=== PATIENT | male | born 1945 ===

== ENCOUNTER 2019-07-12 15:06 | Outpatient (CLI) | payer MEDICARE, OTHER ==
--- NOTE | 2019-07-13 11:06 | XRAY Report ---
Reason: ARTHRITIS R SHOULDER Procedure Date: 07/12/2019 Accession Number: [id number] / [id number] Procedure: XR - Shoulder 3 View RT CPT Code: Final Report FULL RESULT: EXAM: RIGHT SHOULDER RADIOGRAPHY 3 VIEWS EXAM DATE: 07/12/2019. CLINICAL HISTORY: Arthritis. Right shoulder pain for 6 months. COMPARISON: None. TECHNIQUE: AP, Grashey and scapular Y views. FINDINGS: Bones: No fracture or other acute abnormality. Joints: No dislocation. Narrowing and spurring of the acromioclavicular joint. Glenohumeral joint is intact. Soft tissues: 13 x 4 mm calcification adjacent to the greater tuberosity. A 6 mm calcification adjacent to the proximal diaphysis of the humerus. The right lung is clear. Other: Disk narrowing and osteophytes at multiple levels of the thoracic spine. IMPRESSION: Degenerative changes of the acromioclavicular joint. Calcific tendinosis. Multilevel degenerative disk disease and spondylosis of the thoracic spine. No acute abnormality. RADIA
== END 2019-07-12 15:07 | disposition home or self-care (01) ==
LOC: DI 15:06
PROVIDERS: ATTEND Family Medicine
DX: M19.011 Primary osteoarthritis, right shoulder (principal); M75.31 Calcific tendinitis of right shoulder; M51.34 Other intervertebral disc degeneration, thoracic region; M47.814 Spondylosis without myelopathy or radiculopathy, thoracic region

== ENCOUNTER 2020-10-01 00:55 | Outpatient (CLI) | payer OTHER | END 2020-10-01 00:56 | disposition critical access hospital (66) | LOC: EMS 00:55 | DX: R07.9 Chest pain, unspecified (principal) | CPT/HCPCS: A0425; A0427 ==

== ENCOUNTER 2020-10-01 01:23 | Inpatient (IN) | payer MEDICARE, OTHER ==
--- NOTE | 2020-10-01 01:23 | ED Physician Documentation ---
PD HPI CHEST PAIN - Stated complaint Stated Complaint: CHEST DISCOMFORT - History obtained from History obtained from: Patient, EMS - History of Present Illness Timing - onset: How many minutes ago (90) Timing - onset during: Rest Timing - details: Abrupt onset Pain level max: 8 Pain level now: 3 Quality: Pressure Location: Substernal Radiation: Neck Improved by: Nitro, ASA, Other medication (morphine) Worsened by: Other (no exacerbating factors) Associated symptoms: Nausea, Feeling faint / dizzy. No: Shortness of air, Diaphoresis, Vomiting Similar symptoms before: Has not had sx before Recently seen: Not recently seen - Additional information Additional information: BIBA. 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 Denies h/o similar symptoms. EMS administered 325mg ASA PO, SLNTG x 3, and then morphine 4mg IV; these interventions decreased the pain from 8 (of 10) down to 3 by the time he arrives in ED. FSBS 163 by EMS. He saw his line o scribe operator 2 weeks ago; he says he sees line o scribe operator due to h/o CVA. Review of Systems Constitutional: reports: Reviewed and negative Eyes: reports: Reviewed and negative Ears: reports: Reviewed and negative Nose: reports: Reviewed and negative Throat: reports: Reviewed and negative Cardiac: reports: Chest pain / pressure. denies: Palpitations, Pedal edema, Calf pain Respiratory: reports: Reviewed and negative GI: reports: Nausea. denies: Abdominal Pain, Vomiting, Constipation, Diarrhea : denies: Dysuria, Frequency Skin: reports: Reviewed and negative Musculoskeletal: reports: Reviewed and negative Neurologic: reports: Reviewed and negative PD PAST MEDICAL HISTORY - Past Medical History Past Medical History: Yes Cardiovascular: Hypertension, High cholesterol Respiratory: COPD Neuro: CVA Endocrine/Autoimmune: Type 2 diabetes - Present Medications Home Medications: Ambulatory Orders Medication Instructions Recorded Confirmed Albuterol Sulfate [Proair 90 mcg INH DAILY 10/01/20 10/01/20 Digihaler] Aspirin [Garden Aspirin] 81 mg PO DAILY 10/01/20 10/01/20 Atorvastatin [Lipitor] 80 mg PO DAILY PM 10/01/20 10/01/20 Budesonide/Formoterol Fumarate 2 puffs INH DAILY 10/01/20 10/01/20 [Symbicort 80-4.5 Mcg Inhaler] Lisinopril [Zestril] 2.5 mg PO DAILY 10/01/20 10/01/20 Tiotropium [place] [Spiriva 1.25 INH DAILY 10/01/20 Respimat] Tiotropium [place] [Spiriva 2.5 INH DAILY 10/01/20 Respimat] metFORMIN [Glucophage] 1,000 mg PO BID 10/01/20 10/01/20 - Allergies Allergies/Adverse Reactions: Allergies Allergy/AdvReac Type Severity Reaction Status Date / Time No Known Drug Allergies Allergy Verified 10/01/20 01:31 - Living Situation Living Arrangement: reports: At home - Social History Does the pt smoke?: No PD ED PE NORMAL - Vitals Vital signs reviewed: Yes - General General: Alert and oriented X 3, No acute distress, Well developed/nourished - HEENT HEENT: Moist mucous membranes - Neck Neck: Supple, no meningeal sign - Cardiac Cardiac: RRR, No murmur, No gallop, No rub - Respiratory Respiratory: No respiratory distress, Clear bilaterally - Abdomen Abdomen: Soft, Non tender - Derm Derm: Normal color, Warm and dry - Extremities Extremities: No edema - Neuro Neuro: Alert and oriented X 3 Results - Vitals Vitals: Vital Signs - 24 hr 10/01/20 10/01/20 01:23 01:31 Temperature 36.6 C Heart Rate 70 87 Respiratory 16 Rate Blood Pressure 133/73 H 108/79 O2 Saturation 96 97 Oxygen O2 Source Room air - EKG (time done) No standard instances Rate: Rate (enter#) (67) Rhythm: NSR, LAE [place]: Normal, Anterior hemiblock Intervals: Normal MS, RBBB QRS: Normal Ischemia: Normal ST segments - Labs Labs: Laboratory Tests 10/01/20 10/01/20 10/01/20 01:26 01:26 01:26 WBC 9.7 RBC 4.80 Hgb 13.6 L Hct 41.2 L MCV 85.8 MCH 28.3 MCHC 33.0 RDW 12.3 Plt Count 157 MPV 13.8 H Neut # (Auto) 5.5 Lymph # (Auto) 3.4 [place] # (Auto) 0.7 Eos # (Auto) 0.1 Baso # (Auto) 0.0 Absolute Nucleated RBC 0.00 Nucleated RBC % 0.0 D-Dimer Sodium 139 Potassium 4.0 Chloride 105 Carbon Dioxide 24 Anion Gap 10.0 BUN 21 H Creatinine 1.3 H Estimated GFR (MDRD) 54 L Glucose 186 H Calcium 9.2 Total Bilirubin 0.7 AST 15 ALT 17 Alkaline Phosphatase 55 Troponin I High Sens 7.6 Total Protein 7.0 Albumin 4.0 Globulin 3.0 Albumin/Globulin Ratio 1.3 Lipase 18 L 10/01/20 02:05 WBC RBC Hgb Hct MCV MCH MCHC RDW Plt Count MPV Neut # (Auto) Lymph # (Auto) [place] # (Auto) Eos # (Auto) Baso # (Auto) Absolute Nucleated RBC Nucleated RBC % D-Dimer 267.4 H Sodium Potassium Chloride Carbon Dioxide Anion Gap BUN Creatinine Estimated GFR (MDRD) Glucose Calcium Total Bilirubin AST ALT Alkaline Phosphatase Troponin I High Sens Total Protein Albumin Globulin Albumin/Globulin Ratio Lipase - Rads (name of study) chest xray Radiology: Prelim report reviewed, See rad report PD MEDICAL DECISION MAKING - ED course Complexity details: reviewed results, re-evaluated patient, considered differential, d/w patient ED course: EKG shows RBBB, LAFB but no changes/findings to suggest ACS. His description of his symptoms is concerning and his HEART score is 6 (zero for troponin, one each for HPI, EKG, and two points each for age and risk factors), and thus he is admitted to [facility] for further testing and observation. On reevaluation after tests resulted but prior to disposition, he reports to me that his pain is down to 1 out of 10 and is only manifest as pressure/discomfort in his throat/anterior neck (no longer has chest pressure). Departure - Departure Disposition: ED Place in Observation Clinical Impression: Chest pain Qualifiers: Chest pain type: unspecified Qualified Code(s): R07.9 - Chest pain, unspecified Condition: Good Discharge Date/Time: 10/01/20 03:16
[2020-10-01 01:53] LABS: BASOPHILS % (AUTO) 0.4 %; EOSINOPHILS # (AUTO) 0.1 10^3/uL (0.0-0.7); EOSINOPHILS % (AUTO) 1.1 %; HCT - HEMATOCRIT 41.2 % (42.0-52.0); HGB - HEMOGLOBIN 13.6 g/dL (14.0-18.0); LYMPHOCYTES # (AUTO) 3.4 10^3/uL (1.5-3.5); LYMPHOCYTES % (AUTO) 34.8 %; MEAN CORPUSCULAR HEMOGLOBIN 28.3 pg (27.0-31.0); MEAN CORPUSCULAR VOLUME 85.8 fL (80.0-94.0); MEAN PLATELET VOLUME 13.8 fL (7.4-11.4); MONOCYTES # (AUTO) 0.7 10^3/uL (0.0-1.0); NEUTROPHILS # (AUTO) 5.5 10^3/uL (1.5-6.6); NEUTROPHILS % (AUTO) 56.4 %; PLT - PLATELET COUNT 157 10^3/uL (130-450); RED CELL DISTRIBUTION WIDTH 12.3 % (12.0-15.0); WHITE BLOOD COUNT 9.7 x10^3/uL (4.8-10.8)
[2020-10-01 02:04] LABS: ALBUMIN/GLOBULIN RATIO 1.3 (1.0-2.2); BILIRUBIN,TOTAL 0.7 mg/dL (0.2-1.0); CALCIUM 9.2 mg/dL (8.5-10.3); CREATININE 1.3 mg/dL (0.6-1.2)
[2020-10-01] MEDS ORDERED: ONDANSETRON 4 MG/2 ML VIAL IVP PRN (02:49)
[2020-10-01] MEDS ORDERED: oxyCODONE 5 MG TABLET PO PRN (02:49)
[2020-10-01] MEDS ORDERED: ACETAMINOPHEN 325 MG TABLET PO PRN (02:49)
[2020-10-01] MEDS ORDERED: ONDANSETRON ODT 4 MG TABLET TL PRN (02:49)
[2020-10-01] MEDS ORDERED: SODIUM CHLORIDE FLUSH 0.9% 10 ML SYRINGE IVP PRN (02:49)
[2020-10-01] MEDS ORDERED: MORPHINE 2 MG/ML CARPUJECT IVP PRN (03:00)
[2020-10-01] MEDS ORDERED: NITROGLYCERIN SL 0.4 MG TABLET SL PRN (03:00)
[2020-10-01] MEDS ORDERED: ASPIRIN 325 MG TABLET PO STA (03:03)
--- NOTE | 2020-10-01 03:03 | HISTORY & PHYSICAL EXAMINATION ---
Chief Complaint - Chief Complaint Chief Complaint: Chest pressure radiating to neck History of Present Illness - Admitted From Admitted From:: Home via EMS - History Obtained From Records Reviewed: [facility] History obtained from: Patient and Dr. Kang Exam Limitations: None - History of Present Illness HPI Comment/Other: This is a pleasant 75-year-old white male whose cardiac risk factors include male sex, hyperlipidemia, hypertension, diabetes mellitus as well as a history of stroke. He is currently on Lipitor, aspirin. He does see a lieutenant fire fighter due to his history of stroke. Was last seen 2 weeks ago and given "a clean bill of health". He then restates himself instead "at least my EKG was okay." He has been exhausted for about a year and a half now. Things are getting harder and harder to do. No clear reason why. So his lieutenant fire fighter is scheduling him for a stress test. He has not been able to do that yet since they have not given him a call. He is unclear about why he sees a lieutenant fire fighter with a history of stroke. He denies any previous history of AZ, angina, atrial fibrillation, or congestive heart failure. 3 years ago, when he had his TIA, he describes having a coronary angiogram. States that they shot some dye into his heart and "looked all over" and told him that his heart was okay. He was awoken from sleep tonight because of chest pressure that was a severe aching and radiated up from his chest into his throat. He had sweats and nausea with this. The nausea is still here. This entire episode "wiped him out". He is exhausted. He denies palpitations. He has never had this before. There is no left shoulder pain or arm pain with this in spite of the fact that he has chronic bilateral shoulder pain. He received 2 sublingual nitroglycerin and 4 of morphine due to the severity of the pain. He states that most of that ache is completely gone. He just still has a little bit of residual throat ache that still present. He was evaluated by Dr. Kang for temperature was 36.6. Heart rate 70. 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 Blood pressure 133/73. Respirations 16. 96% saturation on room air. He had no JVD, clear lungs, a regular rate and rhythm on exam. Was comfortable in the gurney. BUN 21, creatinine 1.3. Troponin 7.6. Random glucose 186. Hemoglobin 13.6. We do not have any other lab reports on this gentleman to compare to.He has not received any medications in the emergency room. I will order an aspirin 325 mg once. And resume his usual aspirin that he takes at home. The patient is now placed in observation for rule out AZ. History - Past Medical History Cardiovascular: reports: Hypertension, High cholesterol Respiratory: reports: COPD Neuro: reports: CVA, Peripheral neuropathy (starting to have gait instablility and ataxia) Endocrine/Autoimmune: reports: Type 2 diabetes GI: reports: None : reports: Nocturia, Frequency HEENT: reports: Chronic vision loss, Chronic hearing loss Psych: reports: None Musculoskeletal: reports: Osteoarthritis Derm: reports: None - Past Surgical History Ortho: reports: Shoulder arthroplasty (left side) - Family & Social History Family History Comment/Other: Dad at age 73 of complications of congestive heart failure. He was an alcoholic. Mom in her mid 60s. She was living i n a senior living but he cannot say why. She did not have diabetes, hypertension. She of septicemia from decubitus ulcers that had set in. 5 siblings. 1 brother of complications of diabetes. 1 brother in a motor vehicle accident at the age of 37. 1 sister had bilateral BKA's due to diabetes and of peripheral vascular disease and complications of diabetes. His youngest brother is bipolar. They last spoke several decades ago. He has no idea of that brother is alive, , or has any major medical issues. 2 children. One is a commanding officer at the [employer] air [employer] and is a captain in the [employer]. Completely healthy. 1 daughter is a radiology clerk in a hospital in [facility] and is also completely healthy. Living arrangement: At home Living Situation: With spouse/s.o. Social History Notes: He smokes starting around the age of 14 and quit in 1992. Was up to 2 packs/day at times. Was an alcoholic of anywhere from a half a case of beer to a case of beer a day with 1/5 of whiskey on top of that. By then he was out of 4 years of the [employer], and had been working at a slaughterhouse. Met his . She had given him 2 beautiful kids and he decided that "this was stupid" and he just stopped drinking. Did that 40 years ago. No history of recreational substance abuse. his when he was living in [place]. She is an RN and has severe medical problems of her own including brittle diabetes. [place]. [place] He had gone into the [employer] for 4 years and left around 1966. 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 - Substance History Use: Uses substance without health or social issues: NONE Abuse: Recurrent use of substance despite neg consequences: NONE Dependence: Experiences withdrawal or developed tolerances: NONE - POLST Patient has POLST: No POLST Status: Full Code Meds/Allgy - Home Medications Home Medications: Ambulatory Orders Medication Instructions Recorded Confirmed Albuterol Sulfate [Proair 90 mcg INH DAILY 10/01/20 10/01/20 Digihaler] Aspirin [Iyanbito Aspirin] 81 mg PO DAILY 10/01/20 10/01/20 Atorvastatin [Lipitor] 80 mg PO DAILY PM 10/01/20 10/01/20 Budesonide/Formoterol Fumarate 2 puffs INH DAILY 10/01/20 10/01/20 [Symbicort 80-4.5 Mcg Inhaler] Lisinopril [Zestril] 2.5 mg PO DAILY 10/01/20 10/01/20 Tiotropium [place] [Spiriva 1.25 INH DAILY 10/01/20 Respimat] Tiotropium [place] [Spiriva 2.5 INH DAILY 10/01/20 Respimat] metFORMIN [Glucophage] 1,000 mg PO BID 10/01/20 10/01/20 - Allergies Allergies/Adverse Reactions: Allergies Allergy/AdvReac Type Severity Reaction Status Date / Time No Known Drug Allergies Allergy Verified 10/01/20 01:31 Review of Systems - Constitutional Constitutional: reports: Other (He describes about 1-1/2 years of just severe fatigue. No clear indication why. Just exhausted and slowing down. Denies fevers, night sweats, weight changes. Appetite is great.) - Eyes Eyes: reports: Other (Wears corrective lenses, denies glaucoma. Does have early cataracts. No history of amaurosis.) - Ears, Nose & Throat Ears, Nose & Throat: reports: Other (Mild deafness, denies any other problems such as dysphagia, nasal congestion, allergies, hoarseness.) - Cardiovascular Cariovascular: reports: Other (Never had angina before. Denies orthopnea, edema. Again describes a gradual slowing down. Can walk about 350 feet down to the barn and then back up hill again but has to do it slowly. Gets short of breath.) - Respiratory Respiratory: reports: Other (Shortness of breath is creeping up on him. Mainly with exertion. Not at rest. Been prevalent more more the last 2 years. Denies cough, sputum production, hemoptysis. Denies any apnea or use of CPAP.) - Gastrointestinal Gastrointestinal: reports: Other (Excellent appetite. But lately he has been embarrassed because he has explosive diarrhea that comes from out of nowhere. The urge will come from out of nowhere and he has no control over it. By the time he gets to the toilet he is soiled his pants. This is happened several times.). denies: Black stools, Bloody stools, Vomiting, Raji blood emesis, Coffee grounds emesis, Reflux/heartburn - Genitourinary Genitourinary: reports: Frequency, Urgency, Nocturia. denies: Dysuria, Incontinence - Musculoskeletal Musculoskeletal: reports: Back pain (Getting worse over the last few years.), Joint pain (Both shoulders.) - Integumentary Integumentary: denies: Rash, Pruritis, Lesions - Neurological Neurological: reports: General weakness, Numbness (Specifically in his feet. Getting much more dense over the last few years.), Incoordination (His feet are now catching on the floor. He seems to be stumbling more. And he cannot control the fact that his wants to shuffle). denies: Focal weakness, Memory problems - Psychiatric Psychiatric: denies: Depression, Anxiety, Suicidal, Delusions, Hallucinations - Endocrine Endocrine: reports: Polyuria. denies: Polydypsia, Polyphagia, Intolerance to cold - Hematologic/Lymphatic Hematologic/Lymphatic: denies: Anemia, Bruising, Petechiae Prior Level of Functionality: Although he is slowing down, any starting to shuffle way too much, he is still independent with activities of daily living. He dresses himself, feed himself. Still walks down to the barn to do some work there every day and then come back up to 350 feet. Is taking him longer longer to do so. Does not use any [place] medical equipment. In addition to just generalized fatigue, daily shortness of breath, bilateral shoulder pain and back pain slow him down. Exam - Vital Signs Reviewed Vital Signs: Yes Vital Signs: Vital Signs x48h Temp Pulse Resp BP Pulse Ox 10/01/20 02:49 72 125/73 96 10/01/20 01:31 87 108/79 97 10/01/20 01:23 36.6 C 70 16 133/73 H 96 - Physical Exam General Appearance: positive: No acute distress, Alert, Other (Stocky elderly white male, balding, wearing glasses, looks stated age.) Eyes Bilateral: positive: PERRL, EOMI ENT: positive: Pharynx nml Neck: positive: No JVD. negative: Stiff neck Respiratory: positive: No respiratory distress. negative: Wheezes, Rales, Rhonchi Cardiovascular: positive: Regular rate & rhythm, Systolic murmur. negative: Gallop/S4, Friction rub Peripheral Pulses: positive: 1+ Abdomen: positive: Non-tender, No organomegaly, Nml bowel sounds, No distention Skin: positive: Warm, Dry. negative: Diaphoresis Extremities: positive: Full ROM, No pedal edema Neurologic/Psychiatric: positive: Oriented x3, CN's nml (2-12) (Mild deafness). negative: Motor nml (Does have shuffling gait, masked facies, no tremors, pos sible slight cogwheel rigidity right arm.), Sensation nml (Light touch is really gone from his feet up to his ankles), Facial droop, Slurred/abnml speech, Depressed mood/affect Reflexes: Bicep (R): 1+, Bicep (L): 1+, Knee (R): 1+, Knee (L): 1+, Ankle (R): 0, Ankle (L): 0 Conclusion/Plan - Problem List (1) Chest pain Conclusion/Plan: Gentleman who has all the cardiac risk factors. History is certainly suggestive of angina. D-dimer is not high enough to trigger a CT pulmonary angiogram. Cu rrently pain is 1 out of the 10 because there is still a slight throat ache. Chest pain is gone. Plan: Observation status Serial cardiac enzymes Aspirin Received in the EMS rig Williex for DVT prophylaxis I am unclear if he will be able to get a nuclear medicine study today. There is no provider currently available but will order it in the possibility that one will be found. However, this history is very, very suggestive of an episode of ischemia. I wonder if he is a candidate to go straight to the coronary angiogram lab. He sees a lieutenant fire fighter at [facility], Dr. Su. I will suggest that the daytime hospitalist call them first. They may want to transfer him to send him to the lab as opposed to trying to do a stress test. Qualifiers: Chest pain type: unspecified Qualified Code(s): R07.9 - Chest pain, unspecified (2) Type 2 diabetes mellitus with complication, without long-term current use of insulin Conclusion/Plan: Not on insulin.However, gives a history of uncontrollable diarrhea at times. Comes from out of nowhere. This may be from his Metformin.Complications of diabetes do include peripheral neuropathy. Plan: Check A1c Low-dose sliding scale insulin Consider changing his medication in the outpatient setting. He will talk to his primary care provider about it when he gets out of here. (3) Hypertension Conclusion/Plan: Patient has a blood pressure that went down to 108 systolic in the emergency room. Currently 125 systolic. Will hold off on his Zestril 2.5 mg a day. If he has recurrence of his angina, we will most likely use beta-eduarda. He describes having severely elevated blood pressure around the time of his TIA. Thus one of the reasons he had a coronary angiogram. Today's blood pressure does not show severe elevation. On minimal doses at home of Zestril 2.5 mg daily. Qualifiers: Hypertension type: primary hypertension Qualified Code(s): I10 - Essential (primary) hypertension (4) Hyperlipidemia Conclusion/Plan: Currently on a statin. Plan: Check fasting lipid Qualifiers: Hyperlipidemia type: mixed hyperlipidemia Qualified Code(s): E78.2 - Mixed hyperlipidemia (5) Shuffling gait Conclusion/Plan: Without memory loss, tremors. Does have a severe peripheral neuropathy. He says that he has a neurologist. Just had a Mini-Mental status exam and scored scored 30 out of 30. Plan: Follow-up with neurology in the outpatient setting (6) Chronic kidney disease Conclusion/Plan: We do not have any other labs on this gentleman. This may be acute or chronic. He has long-term diabetes. Is on metformin. Will hydrate with 1 L and recheck in the morning. Qualifiers: Chronic kidney disease stage: stage 3 (moderate) - Lab Results Lab results reviewed: Yes Fish Bones: 10/01/20 01:26 10/01/20 01:26 - Diagnostic Imaging Results Diagnostic Imaging Results: positive: Prelim report reviewed Diagnostic Imaging Results Comments: No active disease in the chest on chest x-ray - EKG Results EKG Interpreted Independently: No EKG Comparison: No prior EKG EKG Findings: ER provider interprets this as normal sinus rhythm, no acute ST-T wave changes. Right bundle branch block and left anterior fascicular block Core Measures - Anticipated LOS I expect patient to be DC'd or transferred within 96 hours.: Yes - DVT/VTE - Prophylaxis VTE/DVT Device ordered at admit?: Yes - AMI - Statin at Admit Aspirin Prescribed on Admit: Yes
[2020-10-01] MEDS ORDERED: ATORVASTATIN 40 MG TABLET PO STA (03:10)
[2020-10-01 03:50] LABS: CALCIUM 9.1 mg/dL (8.5-10.3); CREATININE 1.5 mg/dL (0.6-1.2); POTASSIUM 4.5 mmol/L (3.5-5.0)
[2020-10-01 03:53] LABS: B. PARAPERTUSSIS- RESP PCR PAN NOT DETECTED; B. PERTUSSIS- RESP PCR PANEL NOT DETECTED; C. PNEUMONIAE- RESP PCR PANEL NOT DETECTED; CORONAVIRUS 229E-RESP PCR NOT DETECTED; CORONAVIRUS HKU1-RESP PCR NOT DETECTED; CORONAVIRUS NL63-RESP PCR NOT DETECTED; CORONAVIRUS OC43-RESP PCR NOT DETECTED; HUMAN METAPNEUMOVIRUS NOT DETECTED; INFLUENZA A- RESP PCR PANEL NOT DETECTED; INFLUENZA B - RESP PCR PANEL NOT DETECTED; M. PNEUMONIAE- RESP PCR PANEL NOT DETECTED; PARAINFLUENZA VIRUS 1 NOT DETECTED; PARAINFLUENZA VIRUS 2 NOT DETECTED; PARAINFLUENZA VIRUS 3 NOT DETECTED; PARAINFLUENZA VIRUS 4 NOT DETECTED; RHINOVIRUS/ENTEROVIRUS NOT DETECTED; RSV- RESP PCR PANEL NOT DETECTED; SARS-CoV-2 -RESP PCR PANEL NOT DETECTED
[2020-10-01] MEDS ORDERED: INSULIN ASPART 300 UNIT/3 ML PEN SUBQ SCH (08:00)
[2020-10-01] MEDS ORDERED: SODIUM CHLORIDE 0.9% 1,000 ML IV SCH (08:00)
[2020-10-01] MEDS ORDERED: ENOXAPARIN 100 MG/ML SYRINGE SUBQ SCH ×2 (08:00→09:00)
--- NOTE | 2020-10-01 08:10 | XRAY Report ---
PROCEDURE: Chest 2 View X-Ray INDICATIONS: chest pain TECHNIQUE: 2 view(s) of the chest. COMPARISON: None. FINDINGS: Surgical changes and devices: Left shoulder replacement. Lungs and pleura: No pleural effusions or pneumothorax. Lungs are clear. Mediastinum: Mediastinal contours are normal. Heart size is normal. Bones and chest wall: No suspicious bony abnormalities. Soft tissues appear unremarkable. IMPRESSION: No acute cardiopulmonary abnormality Reviewed by: Cory Campbell on 10/01/2020 8:08 AM PDT Approved by: Cory Campbell on 10/01/2020 8:08 AM PDT Station ID: [id number]
[2020-10-01] MEDS ORDERED: ASPIRIN EC 81 MG TABLET PO SCH (09:00)
[2020-10-01] MEDS ORDERED: ENOXAPARIN 40 MG/0.4 ML SYRINGE SUBQ SCH (09:00)
[2020-10-01] MEDS ORDERED: SODIUM CHLORIDE FLUSH 0.9% 10 ML SYRINGE IVP SCH (09:00)
--- NOTE | 2020-10-01 09:21 | PROVIDER PROGRESS NOTE ---
Hospitalist Cross-cover Note - Cross-Cover Note Cross-Cover Note: The patient's troponin came back this morning at 129.9. Given the significant climb, the concern was for NSTEMI. He was started on full dose Lovenox for anticoagulation by the orderly. I spoke with cardiology this morning at [facility] who agreed that given the history and the drop in troponin, this is likely NSTEMI and transfer for an angiogram is warranted and that we should not pursue a stress test. Unfortunately, there are no beds available at [facility], and the [place]. I have put the patient on the waiting list at these facilities. Cardiology did recommend keeping him n.p.o. for the time being but if there was no bed available by this afternoon the patient could be started on a diet and made n.p.o. again at midnight in hopes of being transferred over the next 24 hours for an angiogram. The patient has already received aspirin 325 mg. We will continue my 81 mg daily and a full dose Lovenox. His heart rate is in the 60s as blood pressures in the 140 systolic. We will start him on low-dose metoprolol 25 mg twice daily. We will continue to trend his troponin and ultimately, the plan will be to transfer him to a facility with cardiology once a bed is available. The patient was updated on the plan and is in agreement.
[2020-10-01 09:41] LABS: ESTIMATED AVERAGE GLUCOSE 186 mg/dL (70-100); HEMOGLOBIN A1c% 8.1 % (4.27-6.07)
[2020-10-01] MEDS ORDERED: METOPROLOL TARTRATE 25 MG TABLET PO SCH (10:00)
--- NOTE | 2020-10-01 10:48 | PHARMACY PROGRESS NOTE ---
- Best Possible Medication History Admit Date and Time: 10/01/20 0957 Processed by: Pharmacy Medication History completed: Yes Patient Interview: Completed Secondary Source(s): Written medication list, Physician records, Pharmacy records (PATIENT AND SPOUSE ABLE TO CONFIRM HOME MEDICATIONS ) As the person ultimately responsible for medication therapy, providers are able to order a medication from an existing home medication list in [facility] via the "Reconcile Routine" prior to Confirmation of that medication by it support specialist. Such practice is discouraged except when the physician, in their clinical judgment, deems that a medical need exists for a medication without regard to previous use.
[2020-10-01 11:38] LABS: INR 1.2 (0.8-1.2); PT - PROTHROMBIN TIME 13.1 secs (9.9-12.6)
[2020-10-01] MEDS ORDERED: INSULIN REGULAR HUMAN 300 UNIT/3 ML VIAL SUBQ SCH (12:00)
[2020-10-01] MEDS ORDERED: CLOPIDOGREL 300 MG TABLET PO ONE (12:11)
--- NOTE | 2020-10-01 12:29 | DISCHARGE SUMMARY ---
Discharge Summary Admit Date: 10/01/20 Discharge Date: 10/01/20 Discharging Provider: Ezra Mercado Primary Care Provider: Vinay Lozada Code Status: Attempt Resuscitation Condition at Discharge: Stable Discharge Disposition: 02 Transfer Acute Care Hosp - DIAGNOSES Admission Diagnoses: Chest pain Type 2 diabetes mellitus Hypertension Hyperlipidemia Shuffling gait Chronic kidney disease, stage III Discharge Diagnoses with Status of Each Condition: NSTEMI - ongoing. Hypertension- stable. Type 2 Diabetes Mellitus - stable. Hyperlipdemia - stable. CKD stage stage III - stable. Shuffling gait - stable. - HPI History of Present Illness: H&P per Dr. Pagan: This is a pleasant 75-year-old white male whose cardiac risk factors include male sex, hyperlipidemia, hypertension, diabetes mellitus as well as a history of stroke. He is currently on Lipitor, aspirin. He does see a pmp certified project manager due to his history of stroke. Was last seen 2 weeks ago and given "a clean bill of health". He then restates himself instead "at least my EKG was okay." He has been exhausted for about a year and a half now. Things are getting harder and harder to do. No clear reason why. So his pmp certified project manager is scheduling him for a stress test. He has not been able to do that yet since they have not given him a call. He is unclear about why he sees a pmp certified project manager with a history of stroke. He denies any previous history of MO, angina, atrial fibrillation, or congestive heart failure. 3 years ago, when he had his TIA, he describes having a coronary angiogram. States that they shot some dye into his heart and "looked all over" and told him that his heart was okay. He was awoken from sleep tonight because of chest pressure that was a severe aching and radiated up from his chest into his throat. He had sweats and nausea with this. The nausea is still here. This entire episode "wiped him out". He is exhausted. He denies palpitations. He has never had this before. There is no left shoulder pain or arm pain with this in spite of the fact that he has chronic bilateral shoulder pain. He received 2 sublingual nitroglycerin and 4 of morphine due to the severity of the pain. He states that most of that ache is completely gone. He just still has a little bit of residual throat ache that still present. He was evaluated by Dr. Kang for temperature was 36.6. Heart rate 70. 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 Blood pressure 133/73. Respirations 16. 96% saturation on room air. He had no JVD, clear lungs, a regular rate and rhythm on exam. Was comfortable in the gurney. BUN 21, creatinine 1.3. Troponin 7.6. Random glucose 186. Hemoglobin 13.6. We do not have any other lab reports on this gentleman to compare to.He has not received any medications in the emergency room. I will order an aspirin 325 mg once. And resume his usual aspirin that he takes at home. The patient is now placed in observation for rule out MO. - HOSPITAL COURSE Hospital Course: He was admitted under observation for chest pain and to undergo stress test. His initial troponin was within normal limits but unfortunately began to climb and has not peaked at 1300. Given the initial increase in his troponin from 7 to 130, he was started on Lovenox 100 mg twice daily. He had already received a full dose aspirin. He was started on metoprolol 25 mg twice daily and given Plavix 300 mg once. I spoke with the cardiology group at [facility] given that is where his pmp certified project manager, Dr. Andrade, is located. They agreed with transfer but unfortunately there were no beds available but he was placed on the waiting list. I then contacted the [facility] in [place] who also have no beds available. I then spoke with the [facility] and the patient was graciously accepted by Dr. Reagan in transfer. The patient is chest pain-free prior to transfer and has been hemodynamically stable. He feels much improved compared to his initial presentation. Troponin at 11 AM is 1312.4. We were unable to obtain an echocardiogram today as the tech was unavailable. The patient has been n.p.o. since hospitalization. - ALLERGIES Allergies/Adverse Reactions: Allergies Allergy/AdvReac Type Severity Reaction Status Date / Time No Known Drug Allergies Allergy Verified 10/01/20 01:31 - MEDICATIONS Home Medications: Ambulatory Orders Medication Instructions Recorded Confirmed Albuterol Sulfate [Proair 90 mcg INH DAILY 10/01/20 10/01/20 Digihaler] Aspirin [[place] Aspirin] 81 mg PO DAILY 10/01/20 10/01/20 Atorvastatin [Lipitor] 80 mg PO DAILY PM 10/01/20 10/01/20 Budesonide/Formoterol Fumarate 2 puffs INH DAILY 10/01/20 10/01/20 [Symbicort 80-4.5 Mcg Inhaler] Cholecalciferol (Vitamin D3) 50 mcg PO DAILY 10/01/20 10/01/20 [Vitamin D3] Insulin Glargine [Lantus Solostar] 10 - 20 units SQ BID PRN 10/01/20 10/01/20 Liraglutide [Victoza 2-Mando] 0.6 mg SQ DAILY 10/01/20 10/01/20 Losartan [Cozaar] 50 mg PO DAILY 10/01/20 10/01/20 Tiotropium [place] [Spiriva 2 puffs INH DAILY 10/01/20 10/01/20 Respimat] metFORMIN [Glucophage] 1,000 mg PO BID 10/01/20 10/01/20 Home Medications Other | Comments: Active Medications Acetaminophen (Acetaminophen 325 Mg Tablet) 650 mg PO Q4HR PRN PRN Reason: Pain 1 to 4 Aspirin (Aspirin Ec 81 Mg Tablet) 81 mg PO DAILY [facility] Last Admin: 10/01/20 08:06 Dose: 81 mg Documented by: Enoxaparin Sodium (Enoxaparin 100 Mg/Ml Syringe) 100 mg SUBQ Q12H [facility] Last Admin: 10/01/20 08:03 Dose: 100 mg Documented by: Sodium Chloride (Normal Saline 0.9%) 1,000 mls @ 83.333 mls/hr IV .Q12H [facility] Last Admin: 10/01/20 08:02 Dose: 83.333 mls/hr Documented by: Insulin Human Regular (Insulin Regular Human 300 Unit/3 Ml Vial) 1 - 5 unit SUBQ Q6HR [facility]; Protocol Last Admin: 10/01/20 11:52 Dose: Not Given Documented by: Metoprolol Tartrate (Metoprolol Tartrate 25 Mg Tablet) 25 mg PO BID [facility] Last Admin: 10/01/20 09:44 Dose: 25 mg Documented by: Morphine Sulfate (Morphine 2 Mg/Ml Carpuject) 2 mg IVP Q5M PRN PRN Reason: Chest Pain Nitroglycerin (Nitroglycerin Sl 0.4 Mg Tablet) 0.4 mg SL Q5MIN PRN PRN Reason: Chest Pain Ondansetron HCl (Ondansetron Odt 4 Mg Tablet) 4 mg TL Q6HR PRN PRN Reason: Nausea / Vomiting Ondansetron HCl (Ondansetron 4 Mg/2 Ml Vial) 4 mg IVP Q6HR PRN PRN Reason: Nausea / Vomiting Oxycodone HCl (Oxycodone 5 Mg Tablet) 5 mg PO Q4HR PRN PRN Reason: Pain 5 to 7 Sodium Chloride (Sodium Chloride Flush 0.9% 10 Ml Syringe) 10 ml IVP PRN PRN PRN Reason: NEEDED PER PROVIDER ORDERS Sodium Chloride (Sodium Chloride Flush 0.9% 10 Ml Syringe) 10 ml IVP 0100,0900,1700 [facility] Last Admin: 10/01/20 08:06 Dose: 10 ml Documented by: Albuterol Sulfate [Proair Digihaler] 90 mcg INH DAILY 10/01/20 Aspirin [[place] Aspirin] 81 mg PO DAILY 10/01/20 Atorvastatin [Lipitor] 80 mg PO DAILY PM 10/01/20 Budesonide/Formoterol Fumarate [Symbicort 80-4.5 Mcg Inhaler] 2 puffs INH DAILY 10/01/20 Cholecalciferol (Vitamin D3) [Vitamin D3] 50 mcg PO DAILY 10/01/20 Insulin Glargine [Lantus Solostar] 10 - 20 units SQ BID PRN 10/01/20 Liraglutide [Victoza 2-Mando] 0.6 mg SQ DAILY 10/01/20 Losartan [Cozaar] 50 mg PO DAILY 10/01/20 Tiotropium [place] [Spiriva Respimat] 2 puffs INH DAILY 10/01/20 metFORMIN [Glucophage] 1,000 mg PO BID 10/01/20 - PHYSICAL EXAM AT DISCHARGE General Appearance: positive: No acute distress, Alert Eyes Bilateral: positive: Normal inspection, Conjunctivae nml ENT: positive: ENT inspection nml Neck: positive: Nml inspection Respiratory: positive: No respiratory distress. negative: Wheezes, Rales Cardiovascular: positive: Regular rate & rhythm, No murmur. negative: Tachycardia, Systolic murmur Abdomen: positive: Non-tender, No distention. negative: Tenderness Skin: positive: Warm, Dry Extremities: positive: Full ROM, No pedal edema Neurologic/Psychiatric: positive: Oriented x3, Motor nml. negative: Disoriented to person, Disoriented to place, Disoriented to time Physical Exam Other/Comments: Vital Signs - 24 hr 10/01/20 10/01/20 10/01/20 01:23 01:31 02:49 Temperature 36.6 C Heart Rate 70 87 72 Heart Rate [ Monitoring electrodes] Respiratory 16 Rate Blood Pressure 133/73 H 108/79 125/73 Blood Pressure [Left Brachial artery] Blood Pressure [Right Brachial artery] O2 Saturation 96 97 96 10/01/20 10/01/20 10/01/20 03:50 08:01 09:44 Temperature 36.4 C L 36.4 C L Heart Rate Heart Rate [ 76 69 Monitoring electrodes] Respiratory 18 18 Rate Blood Pressure 152/73 H Blood Pressure [Left Brachial artery] Blood Pressure 145/84 H 147/74 H [Right Brachial artery] O2 Saturation 97 99 10/01/20 11:35 Temperature 36.4 C L Heart Rate Heart Rate [ 66 Monitoring electrodes] Respiratory 20 Rate Blood Pressure Blood Pressure 147/83 H [Left Brachial artery] Blood Pressure [Right Brachial artery] O2 Saturation 98 Oxygen O2 Source Room air - LABS Result Diagrams: 10/01/20 01:26 10/01/20 03:38 Other Lab Results: Laboratory Results - last 24 hr 10/01/20 10/01/20 10/01/20 01:26 01:26 01:26 WBC 9.7 RBC 4.80 Hgb 13.6 L Hct 41.2 L MCV 85.8 MCH 28.3 MCHC 33.0 RDW 12.3 Plt Count 157 MPV 13.8 H Neut # (Auto) 5.5 Lymph # (Auto) 3.4 [place] # (Auto) 0.7 Eos # (Auto) 0.1 Baso # (Auto) 0.0 Absolute Nucleated RBC 0.00 Nucleated RBC % 0.0 PT INR D-Dimer Sodium 139 Potassium 4.0 Chloride 105 Carbon Dioxide 24 Anion Gap 10.0 BUN 21 H Creatinine 1.3 H Estimated GFR (MDRD) 54 L Glucose 186 H Estimat Average Glucose Hemoglobin A1c % Calcium 9.2 Total Bilirubin 0.7 AST 15 ALT 17 Alkaline Phosphatase 55 Troponin I High Sens 7.6 Total Protein 7.0 Albumin 4.0 Globulin 3.0 Albumin/Globulin Ratio 1.3 Lipase 18 L Nasal Adenovirus (PCR) Nasal B. parapertussis DNA (PCR) Nasal Coronavir 229E PCR Nasal Coronavir HKU1 PCR Nasal Coronavir NL63 PCR Nasal Coronavir OC43 PCR Nasal Enterovir/Rhinovir PCR Nasal Influenza B PCR Nasal Influenza A PCR Nasal Parainfluen 1 PCR Nasal Parainfluen 2 PCR Nasal Parainfluen 3 PCR Nasal Parainfluen 4 PCR Nasal RSV (PCR) Nasal B.pertussis DNA PCR Nasal C.pneumoniae (PCR) [place] Human Metapneumo PCR Nasal M.pneumoniae (PCR) Nasal SARS-CoV-2 (PCR) 10/01/20 10/01/20 10/01/20 02:05 02:55 03:38 WBC RBC Hgb Hct MCV MCH MCHC RDW Plt Count MPV Neut # (Auto) Lymph # (Auto) [place] # (Auto) Eos # (Auto) Baso # (Auto) Absolute Nucleated RBC Nucleated RBC % PT INR D-Dimer 267.4 H Sodium 134 L Potassium 4.5 Chloride 100 L Carbon Dioxide 21 Anion Gap 13.0 BUN 23 H Creatinine 1.5 H Estimated GFR (MDRD) 46 L Glucose 207 H Estimat Average Glucose Hemoglobin A1c % Calcium 9.1 Total Bilirubin AST ALT Alkaline Phosphatase Troponin I High Sens Total Protein Albumin Globulin Albumin/Globulin Ratio Lipase Nasal Adenovirus (PCR) NOT DETECTED Nasal B. parapertussis DNA (PCR) NOT DETECTED Nasal Coronavir 229E PCR NOT DETECTED Nasal Coronavir HKU1 PCR NOT DETECTED Nasal Coronavir NL63 PCR NOT DETECTED Nasal Coronavir OC43 PCR NOT DETECTED Nasal Enterovir/Rhinovir PCR NOT DETECTED Nasal Influenza B PCR NOT DETECTED Nasal Influenza A PCR NOT DETECTED Nasal Parainfluen 1 PCR NOT DETECTED Nasal Parainfluen 2 PCR NOT DETECTED Nasal Parainfluen 3 PCR NOT DETECTED Nasal Parainfluen 4 PCR NOT DETECTED Nasal RSV (PCR) NOT DETECTED Nasal B.pertussis DNA PCR NOT DETECTED Nasal C.pneumoniae (PCR) NOT DETECTED Ju[place] Human Metapneumo PCR NOT DETECTED Nasal M.pneumoniae (PCR) NOT DETECTED Nasal SARS-CoV-2 (PCR) NOT DETECTED 10/01/20 10/01/20 10/01/20 05:29 05:29 08:16 WBC RBC Hgb Hct MCV MCH MCHC RDW Plt Count MPV Neut # (Auto) Lymph # (Auto) [place] # (Auto) Eos # (Auto) Baso # (Auto) Absolute Nucleated RBC Nucleated RBC % PT INR D-Dimer Sodium Potassium Chloride Carbon Dioxide Anion Gap BUN Creatinine Estimated GFR (MDRD) Glucose Estimat Average Glucose 186 H Hemoglobin A1c % 8.1 H Calcium Total Bilirubin AST ALT Alkaline Phosphatase Troponin I High Sens 129.9 H* 374.2 H* Total Protein Albumin Globulin Albumin/Globulin Ratio Lipase Nasal Adenovirus (PCR) Nasal B. parapertussis DNA (PCR) Nasal Coronavir 229E PCR Nasal Coronavir HKU1 PCR Nasal Coronavir NL63 PCR Nasal Coronavir OC43 PCR Nasal Enterovir/Rhinovir PCR Nasal Influenza B PCR Nasal Influenza A PCR Nasal Parainfluen 1 PCR Nasal Parainfluen 2 PCR Nasal Parainfluen 3 PCR Nasal Parainfluen 4 PCR Nasal RSV (PCR) Nasal B.pertussis DNA PCR Nasal C.pneumoniae (PCR) [place] Human Metapneumo PCR Nasal M.pneumoniae (PCR) Nasal SARS-CoV-2 (PCR) 10/01/20 10/01/20 11:19 11:19 WBC RBC Hgb Hct MCV MCH MCHC RDW Plt Count MPV Neut # (Auto) Lymph # (Auto) [place] # (Auto) Eos # (Auto) Baso # (Auto) Absolute Nucleated RBC Nucleated RBC % PT 13.1 H INR 1.2 D-Dimer Sodium Potassium Chloride Carbon Dioxide Anion Gap BUN Creatinine Estimated GFR (MDRD) Glucose Estimat Average Glucose Hemoglobin A1c % Calcium Total Bilirubin AST ALT Alkaline Phosphatase Troponin I High Sens 1312.4 H* Total Protein Albumin Globulin Albumin/Globulin Ratio Lipase Nasal Adenovirus (PCR) Nasal B. parapertussis DNA (PCR) Nasal Coronavir 229E PCR Nasal Coronavir HKU1 PCR Nasal Coronavir NL63 PCR Nasal Coronavir OC43 PCR Nasal Enterovir/Rhinovir PCR Nasal Influenza B PCR Nasal Influenza A PCR Nasal Parainfluen 1 PCR Nasal Parainfluen 2 PCR Nasal Parainfluen 3 PCR Nasal Parainfluen 4 PCR Nasal RSV (PCR) Nasal B.pertussis DNA PCR Nasal C.pneumoniae (PCR) [place] Human Metapneumo PCR Nasal M.pneumoniae (PCR) Nasal SARS-CoV-2 (PCR) - DIAGNOSTIC IMAGING Diagnostic Imaging Results: Final report reviewed - TIME SPENT Time Spent in Discharge (Minutes): 47
[2020-10-01 15:08] VITALS: BP 159/64
== END 2020-10-01 15:15 | disposition short-term general hospital (02) | DRG 282 ==
LOC: EDUNIT# → ED 01:23 → MS2 02:49 → OBSVTOIN 09:57
PROVIDERS: ADMIT Specialist; ATTEND Internal Medicine
DX: I21.4 Non-ST elevation (NSTEMI) myocardial infarction (principal); I12.9 Hypertensive chronic kidney disease with stage 1 through stage 4 chronic kidney disease, or unspecified chronic kidney disease; E11.22 Type 2 diabetes mellitus with diabetic chronic kidney disease; N18.30 Chronic kidney disease, stage 3 unspecified; E78.5 Hyperlipidemia, unspecified; J44.9 Chronic obstructive pulmonary disease, unspecified; R26.89 Other abnormalities of gait and mobility; M25.512 Pain in left shoulder; M25.511 Pain in right shoulder; M54.9 Dorsalgia, unspecified; E11.42 Type 2 diabetes mellitus with diabetic polyneuropathy; R53.83 Other fatigue; R35.1 Nocturia; R35.0 Frequency of micturition; R39.15 Urgency of urination; H54.7 Unspecified visual loss; H26.9 Unspecified cataract; H91.90 Unspecified hearing loss, unspecified ear; F10.21 Alcohol dependence, in remission; Z87.891 Personal history of nicotine dependence; Z20.822 Contact with and (suspected) exposure to COVID-19; Z79.51 Long term (current) use of inhaled steroids; Z79.82 Long term (current) use of aspirin; Z79.84 Long term (current) use of oral hypoglycemic drugs; Z79.899 Other long term (current) drug therapy; Z86.73 Personal history of transient ischemic attack (TIA), and cerebral infarction without residual deficits
CPT/HCPCS: 0202U; 36415; 71046; 80048; 80053; 83036; 83690; 84484; 85025; 85379; 85610; 93005; 96372; 99284; 99285; A9270; G0378; J1650

== ENCOUNTER 2022-05-21 17:14 | Outpatient (CLI) | payer MEDICARE, OTHER | END 2022-05-21 23:59 | disposition short-term general hospital (02) | LOC: EMS 17:14 | DX: R07.9 Chest pain, unspecified (principal) | CPT/HCPCS: A0425; A0427 ==